=== PATIENT | male | born 1985 | race Caucasian/White ===

== ENCOUNTER 2023-10-24 09:21 | Inpatient (IN) ==
--- NOTE | 2023-10-24 09:42 | Emergency Department Note ---
Impression & Plan Paranoid delusion, Hypertension ED Provider Note NAME: EHSAN MILLER AGE: 38 SEX: M : 1985 ARRIVES VIA: Walk-In INFORMANT: Patient ED PROVIDER(S): Johan Aaron MD CHIEF COMPLAINT: Mental health and medical evaluation request. PLAN: Disposition: Admit to MEDICAL DECISION MAKING: The patient is a 38-year-old gentleman who presents to the emergency department accompanied by police requesting mental health and medical evaluation. Patient was found at the [facility] emergency department where he went to get his prostate assessments but they have yet to open and when he saw police had requested their assistance. He has disorganized and potentially/likely delusional thinking where he describes a convoluted history of [place] [facility] the [facility] [place] from his home in [place] where he reports going to [place] [employer] there and ended up getting assistance to leave the city and then got additional help by state police on the highway [place]. The patient admits he has not slept for the past 24 hours because he was "on the run". He reports he does take medication for blood pressure but is not sure which medications but reports he has been taking them. He denies regular alcohol use. He denies drug use or marijuana use. He reports he does have a history of depression. 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 He reports he does have a shotgun in the back of his car for hunting and protection. He reports he is open to being admitted medically or for mental health if that is the recommendation. On evaluation accompanied by our psychiatric binder caser, the patient is anxious but in no distress, afebrile heart in the 100s and blood pressure 200/130s. He appears clinically dry. He has no focal neurologic deficits. His thoughts are disorganized with pressured speech and flight of ideas. His account of events suggest delusional process. EKG without overt acute ischemia. CXR negative for acute cardiopulmonary process per my personal preliminary review/interpretation. WBC, H/H and platelets within normal limits. Chemistry without metabolic acidosis. ALT is 66, nonspecific and LFTs otherwise normal. High-sensitivity troponin 13.4, within normal limits. Lipase is not elevated. TSH within normal limits. UA without evidence of infection. Urine drug screen was negative. Medical alcohol is undetectable. COVID-19 RNA, NAAT test was negative. CT of the head was negative for acute abnormalities. Patient was treated with IV fluid hydration and 1 mg of oral Ativan. Heart rate and blood pressure did subsequently improve. Patient is medically cleared. Appreciate case management assistance/consultation and mental health evaluation was completed. Patient was still interested in voluntary inpatient mental health treatment. Referral placed to [facility] who accepted the patient for further management. Triage Nursing notes reviewed and agree them. Prior/external medical records reviewed Vital Signs: reviewed Differential diagnosis: Mood disorder, infection, hypoglycemia, electrolyte abnormalities, cardiac sources, intracerebral event, toxicologic, trauma, neurologic, as well as other pathologies. ER treatment provided: See below. Diagnostics interpreted by me: Cardiac Monitoring: An order for continuous cardiac monitoring was placed and demonstrated normal sinus rhythm, 89 bpm, no ectopy. Laboratory studies: See below Imaging studies: See below Consultation(s): Case management. HPI: The patient is a 38-year-old gentleman who presents to the emergency department accompanied by police requesting mental health and medical evaluation. Patient was found at the [facility] emergency department where he went to get his prostate assessments but they have yet to open and when he saw police had requested their assistance. He has disorganized and potentially/likely delusional thinking where he describes a convoluted history of running from the [facility] [place] from his home in [place] where he reports going to [place] [facility] [employer] there and ended up getting assistance to leave the [facility] and then got additional help by state police on the highway [place]. The patient admits he has not slept for the past 24 hours because he was "on the run". He reports he does take medication for blood pressure but is not sure which medications but reports he has been taking them. He denies regular alcohol use. He denies drug use or marijuana use. He reports he does have a history of depression. 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 He reports he does have a shotgun in the back of his car for hunting and protection. He reports he is open to being admitted medically or for mental health if that is the recommendation. ROS: See above HPI for pertinent positives & negatives. A total of 10 systems reviewed and were otherwise negative. VITALS:See Below PHYSICAL EXAMINATION: GENERAL: Awake, alert, well-appearing, in no distress HENT: Normocephalic, atraumatic. Oropharynx with dry mucous membranes and otherwise unremarkable. EYES: Normal conjunctiva. Sclera non-icteric. EOMI. No nystamgus. PEARRL. NECK: Supple. No nuchal rigidity. FROM. No JVD. RESPIRATORY: Clear to auscultation. CARDIAC: Tachycardic rate, normal rhythm. Extremities warm and well perfused. Pulses equal. ABDOMEN: Soft, non-distended. No tenderness to palpation. No rebound or guarding. No masses. MUSCULOSKELETAL: Chest examination reveals no tenderness. The back is symmetrical on inspection without obvious abnormality. There is no CVA tenderness to palpation. No joint edema. LOWER EXTREMITIES: Calves are equal size bilaterally and non-tender. No edema. No discoloration. NEURO: Normal sensorium. No sensory or motor deficits noted. SKIN: No rash or jaundice noted. PSYCH: Disorganized thoughts, flight of ideas, pressured speech, redirectable, denies SI/HI. Johan Aaron MD Past Med/Surg History Problem List (Updated 10/24/23 @ 21:32 by Johan Aaron MD) Hypertension (Acute) Paranoid delusion (Acute) Medical History Hypertension Social History Smoking Status: Current every day smoker Tobacco Type: Cigarettes Preferred Language: Greek Communication Ability: Effective State Auditor Required: No Beliefs That Will Affect Care: None Feels Safe at Home: No Gender Identity: Male Assistive Devices: None Results & Data (ED) Vital Signs Vital Signs - 24 hr 10/24/23 09:34 10/24/23 10:10 10/24/23 10:33 Temperature 37.0 C Temperature Source Temporal Artery Scan Pulse Rate 113 H 112 H Pulse Rate [Apical] 112 H Pulse Rhythm Pulse Rhythm [Apical] Pulse Strength [Apical] Respiratory Rate 20 18 Respiratory Effort / Characteristics Non-Labored Spontaneous Non-Labored Spontaneous Respiratory Depth Normal Normal Respiratory Pattern Regular Blood Pressure 205/132 H Blood Pressure [Left Arm] 171/124 H Blood Pressure Mean 156 Blood Pressure Mean [Left Arm] 139 Blood Pressure Position [Left Arm] Lying Pulse Oximetry 95 95 Oxygen Delivery Method Room Air Room Air Sepsis Recent Fever Within 48 Hours No Sepsis New/Unexplained Change in Mental Status No Sepsis Action Taken by Nursing No Action Required 10/24/23 11:14 10/24/23 11:15 10/24/23 12:02 Temperature Temperature Source Pulse Rate 104 H Pulse Rate [Apical] 104 H 104 H Pulse Rhythm Regular Pulse Rhythm [Apical] Regular Pulse Strength [Apical] Normal Respiratory Rate 19 19 18 Respiratory Effort / Characteristics Non-Labored Spontaneous Non-Labored Spontaneous Respiratory Depth Normal Normal Respiratory Pattern Regular Regular Blood Pressure Blood Pressure [Left Arm] 173/126 H 176/138 H Blood Pressure Mean Blood Pressure Mean [Left Arm] 141 150 Blood Pressure Position [Left Arm] Pulse Oximetry 96 96 95 Oxygen Delivery Method Room Air Room Air Room Air Sepsis Recent Fever Within 48 Hours Sepsis New/Unexplained Change in Mental Status Sepsis Action Taken by Nursing 10/24/23 12:33 10/24/23 13:06 Temperature Temperature Source Pulse Rate Pulse Rate [Apical] 96 H 96 H Pulse Rhythm Pulse Rhythm [Apical] Pulse Strength [Apical] Normal Normal Respiratory Rate 18 18 Respiratory Effort / Characteristics Non-Labored Spontaneous Non-Labored Spontaneous Respiratory Depth Normal Normal Respiratory Pattern Regular Regular Blood Pressure Blood Pressure [Left Arm] 151/118 H 132/96 Blood Pressure Mean Blood Pressure Mean [Left Arm] 129 108 Blood Pressure Position [Left Arm] Pulse Oximetry 93 93 Oxygen Delivery Method Room Air Room Air Sepsis Recent Fever Within 48 Hours Sepsis New/Unexplained Change in Mental Status Sepsis Action Taken by Nursing Laboratory Data Attestation: I reviewed the patient's lab results. 10/24/23 10:04 10/24/23 10:04 Lab Results 10/24/23 Range/Units 10:04 WBC 6.76 (4.8-10.8) K/ul RBC 4.98 (4.70-6.10) M/uL Hgb 15.9 (14.0-18.0) g/dl Hct 46.6 (42.0-52.0) % MCV 93.6 (80.0-100.0) fL MCH 31.9 (25.0-34.0) pg MCHC 34.1 (32.0-36.0) g/dL RDW Std Deviation 43.4 (36.4-46.3) fL RDW Coeff of Christian 12.6 (11.5-14.5) % Plt Count 321 (130-400) K/uL MPV 10.2 (9.4-12.4) fL Immature Gran % (Auto) 0.3 % Neut % (Auto) 71.6 % Lymph % (Auto) 16.3 % Harney % (Auto) 10.5 % Eos % (Auto) 0.6 % Baso % (Auto) 0.7 % Neut # (Auto) 4.84 (1.40-6.50) K/uL Lymph # (Auto) 1.10 L (1.20-3.40) K/uL Harney # (Auto) 0.71 H (0.11-0.59) K/uL Eos # (Auto) 0.04 (0.00-0.50) K/uL Baso # (Auto) 0.05 (0.00-0.20) K/uL Immature Gran # (Auto) 0.02 (0.01-0.20) K/uL PT 10.9 (9.0-12.0) Seconds INR 1.0 (0.9-1.1) Sodium 138 (136-145) mmol/L Potassium 3.7 (3.5-5.1) mmol/L Chloride 102 (98-107) mmol/L Carbon Dioxide 25 (21-32) mmol/L Anion Gap 11 (3-11) BUN 17 (6-23) mg/dl Creatinine 0.88 (0.6-1.4) mg/dl Est Cr Clr Drug Dosing 114.9 ml/min Est GFR ( Amer) 124.5 ml/min Est GFR (Non-Af Amer) 107.5 ml/min BUN/Creatinine Ratio 19.3 (10-20) Glucose 128 H (70-99(Fasting)) mg/dl Calcium 9.9 (8.6-10.3) mg/dl Total Bilirubin 0.7 (0.2-1.0) mg/dl AST 35 (13-39) U/L ALT 66 H (7-52) U/L Alkaline Phosphatase 64 (34-104) U/L Troponin I High Sens 13.4 (0-20) pg/ml Total Protein 7.8 (6.0-8.3) gm/dl Albumin 5.1 H (3.4-5.0) gm/dl Globulin 2.7 (2.5-4.0) gm/dl Albumin/Globulin Ratio 1.9 (0.9-2) Lipase 10 L (11-82) U/L TSH 3.078 (0.300-4.500) uIu/ml Ethyl Alcohol mg/dL < 10.0 (<10.0) mg/dl Administered Medications Discontinued Medications Sodium Chloride (Nss) 1,000 mls @ 999 mls/hr IV .Q1H1M STA Stop: 10/24/23 11:44 Last Infusion: 10/24/23 12:28 Dose: Infused Documented By: Admin: 10/24/23 11:12 Dose: 999 mls/hr Documented By: LUIS Lorazepam (Lorazepam 1 Mg Tab) 1 mg SL NOW STA Stop: 10/24/23 10:45 Last Admin: 10/24/23 11:13 Dose: 1 mg Documented By: LUIS Imaging Data Radiologist's Impression: Chest X-Ray 10/24/23 10:45 XR chest 1V portable CLINICAL HISTORY: Chest pain, nonspecific TECHNIQUE: Single frontal radiograph of the chest was obtained. Comparison: None available at the time of this dictation. FINDINGS: No lines and tubes are seen. The cardiomediastinal silhouette is normal. The lungs are clear. No evidence of pleural effusion or pneumothorax. IMPRESSION: No acute chest disease. ACT 112: Negative or not required by law. Electronically signed by: Zafar Macias M.D. 10/24/2023 10:[address] 10/24/23 10:46 CT head/brain wo con CLINICAL HISTORY: ams, htn Technique: Contiguous axial CT images of the head were acquired from the base of the skull to the vertex without intravenous contrast administration. Images were viewed in brain, subdural and bone windows. Automated dose lowering techniques and/or adjustment according to patient size were utilized for this exam. Comparison: None available at the time of this dictation. Findings: The ventricles, basal cisterns, and cerebral sulci are normal. There is no acute intracranial hemorrhage or evidence of acute territorial infarction. Neither mass effect, shift of the midline structures, nor abnormal extra-axial fluid collections are shown. Imaged portions of the paranasal sinuses and mastoid air cells are clear. The orbits appear normal. There are no acute fractures of the calvaria or scalp swelling. Impression: No acute intracranial hemorrhage, no evidence of acute territorial infarction or other acute intracranial disease process. ACT 112: Negative or not required by law. Electronically signed by: Zafar Macias M.D. 10/24/2023 11:54 AM Discharge Plan Visit Data Chief Complaint: Mental Health Evaluation Stated Complaint: ANXIETY, MHE ED Provider: Johan Aaron Discharge Problem: Paranoid delusion, Hypertension Patient Disposition: Admitted As Inpatient Discharge Instructions Interventions: ED Discharge Assessment Last Done: 10/24/23 15:03 Discharge Problem: Hypertension Qualifiers: Hypertension type: unspecified Qualified Code(s): I10 - Essential (primary) hypertension
--- NOTE | 2023-10-24 11:00 | XRay Report ---
XR chest 1V portable CLINICAL HISTORY: Chest pain, nonspecific TECHNIQUE: Single frontal radiograph of the chest was obtained. Comparison: None available at the time of this dictation. FINDINGS: No lines and tubes are seen. The cardiomediastinal silhouette is normal. The lungs are clear. No evid ence of pleural effusion or pneumothorax. IMPRESSION: No acute chest disease. ACT 112: Negative or not required by law. Electronically signed by: Zafar Macias M.D. 10/24/2023 10:58 AM
[2023-10-24] MEDS: SODIUM CHLORIDE 0.9% 1,000 ML IV STA (11:12)
[2023-10-24] MEDS: LORazepam 1 MG TAB SL STA (11:13)
[2023-10-24 11:14] LABS: Basophils # (auto) 0.05 K/uL (0.00-0.20); Basophils % (auto) 0.7 %; Eosinophils # (auto) 0.04 K/uL (0.00-0.50); Eosinophils % (auto) 0.6 %; Hematocrit (blood only) 46.6 % (42.0-52.0); Hemoglobin 15.9 g/dl (14.0-18.0); Immature Granulocytes # (auto) 0.02 K/uL (0.01-0.20); Immature Granulocytes % (auto) 0.3 %; Lymphocytes % (auto) 16.3 %; Mean Corpuscular Hemoglobin 31.9 pg (25.0-34.0); Mean Corpuscular Hgb Conc 34.1 g/dL (32.0-36.0); Mean Corpuscular Volume 93.6 fL (80.0-100.0); Mean Platelet Volume 10.2 fL (9.4-12.4); Monocytes # (auto) 0.71 K/uL (0.11-0.59); Monocytes % (auto) 10.5 %; Neutrophils # (auto) 4.84 K/uL (1.40-6.50); Neutrophils % (auto) 71.6 %; Platelet Count 321 K/uL (130-400); RDW Coefficient of Variation 12.6 % (11.5-14.5); RDW Standard Deviation 43.4 fL (36.4-46.3); Red Blood Count 4.98 M/uL (4.70-6.10); White Blood Count 6.76 K/ul (4.8-10.8)
[2023-10-24 11:38] LABS: Prothrombin Time 10.9 Seconds (9.0-12.0)
[2023-10-24 11:41] LABS: Albumin Globulin Ratio 1.9 (0.9-2); Albumin Level 5.1 gm/dl (3.4-5.0); BUN Creatinine Ratio 19.3 (10-20); Bilirubin,Total 0.7 mg/dl (0.2-1.0); Calcium 9.9 mg/dl (8.6-10.3); Creatinine Clr Calc Pharmacy 114.9 ml/min; Est GFR (African American) 124.5 ml/min; Est GFR (Non-African American) 107.5 ml/min; Globulin 2.7 gm/dl (2.5-4.0); Potassium 3.7 mmol/L (3.5-5.1); Total Protein 7.8 gm/dl (6.0-8.3)
[2023-10-24 11:46] LABS: Troponin I High Sensitivity 13.4 pg/ml (0-20)
--- NOTE | 2023-10-24 11:55 | CT Scan Report ---
CT head/brain wo con CLINICAL HISTORY: ams, htn Technique: Contiguous axial CT images of the head were acquired from the base of the skull to the paco marvin without intravenous contrast administration. Images were viewed in brain, subdural and [facility]. Automated dose lowering techniques and/or adjustment according to patient size were utilized for this exam. Comparison: None available at the time of this dictation. Findings: The ventricles, basal cisterns, and cerebral sulci are normal. There is no acute intracranial hemorrh age or evidence of acute territorial infarction. Neither mass effect, shift of the midline structures , nor abnormal extra-axial fluid collections are shown. Imaged portions of the paranasal sinuses and mastoid air cells are clear. The orbits appear normal. There are no acute fractures of the calvaria or scalp swelling. Impression: No acute intracranial hemorrhage, no evidence of acute territorial infarction or other acute intracra nial disease process. ACT 112: Negative or not required by law. Electronically signed by: Zafar Macias M.D. 10/24/2023 11:54 AM
[2023-10-24 11:56] LABS: Thyroid Stimulating Hormone 3.078 uIu/ml (0.300-4.500)
[2023-10-24 12:38] LABS: Appearance Urine Clear (Clear); Bacteria Urine Automated None Seen (None Seen); Bilirubin Urine Negative (Negative); Blood Urine Negative (Negative); Cast Urine Automated 0-2 /lpf (0-2); Color Urine Yellow; Epithelial Cell Urine Auto 0-2 /hpf (0-2); Glucose Urine UA Negative (Negative); Ketones Urine 1+ (Negative); Leukocyte Esterase Urine Negative (Negative); Nitrite Urine Negative (Negative); Protein Urine 1+ (Negative); RBC Urine Automated 0-2 /hpf (0-2); Specific Gravity Urine 1.027 (1.000-1.030); Urobilinogen Urine Negative (Negative); WBC Urine Automated 0-5 /hpf (0-5)
[2023-10-24 12:53] LABS: Amphetamines+Metham, Urine Neg (Neg); Barbiturates, Urine Neg (Neg); Benzodiazepine, Urine Neg (Neg); Cocaine, Urine Neg (Neg); Fentanyl, Urine Neg (Neg); MDMA (Ecstacy), Urine Neg (Neg); Marijuana, Urine Neg (Neg); Methadone, Urine Neg (Neg); Opiate, Urine Neg (Neg); Phencyclidine, Urine Neg (Neg)
[2023-10-24] MEDS ORDERED: ALUMINUM/MAGNESIUM SUSP 30 ML UDC PO PRN (14:37)
[2023-10-24] MEDS ORDERED: SODIUM CHLORIDE 0.65% NA SOLN 45 ML (OCEAN) PRN (14:37)
[2023-10-24] MEDS ORDERED: hydrOXYzine HCl 25 MG TAB PO PRN (14:37)
[2023-10-24] MEDS ORDERED: ACETAMINOPHEN 325 MG TAB PO PRN (14:37)
[2023-10-24] MEDS ORDERED: MAGNESIUM HYDROXIDE SUSP 30 ML UDC PO PRN (14:37)
[2023-10-24] MEDS ORDERED: BISMUTH SUBSALICYLATE LIQD 236 ML PO PRN (14:37)
[2023-10-24] MEDS ORDERED: LORazepam 1 MG TAB PO PRN (15:27)
[2023-10-24] MEDS ORDERED: Ativan PO Alcohol Withdrawal--Active Protocol PO PRN (15:27)
[2023-10-24] MEDS: ALBUTEROL HFA 8 GM INHALER INH PRN (21:15)
[2023-10-25] MEDS: NICOTINE 14 MG/24 HR PATCH TD SCH (08:25)
[2023-10-25] MEDS: NICOTINE POLACRILEX 2 MG GUM MT PRN (08:47)
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
[2023-10-25] MEDS: LOSARTAN POTASSIUM 50 MG TAB PO SCH (10:03)
--- NOTE | 2023-10-25 10:07 | Electrocardiogram Report ---
Test Reason : Blood Pressure : / mmHG Vent. Rate : 106 BPM Atrial Rate : 106 BPM P-R Int : 122 ms QRS Dur : 076 ms QT Int : 330 ms P-R-T Axes : 045 055 048 degrees QTc Int : 438 ms Sinus tachycardia Otherwise normal ECG No previous ECGs available Confirmed by Aly Vaughn ([id number]) on 10/25/2023 10:07:23 AM Referred By: REFERRED SELF Confirmed By:Aly Vaughn
[2023-10-25] MEDS: LORazepam 1 MG TAB PO ONE (12:10)
[2023-10-25] MEDS: LORazepam 1 MG TAB PO PRN (18:12)
[2023-10-25] MEDS: ATORVASTATIN 40 MG TAB PO SCH (21:12)
[2023-10-25] MEDS: hydrOXYzine HCl 25 MG TAB PO PRN (21:13)
--- NOTE | 2023-10-26 08:22 | Psychiatric Progress Note ---
Date of Service October 26, 2023 Impression / Recommendations Impression 38 yo man with a history of anxiety and alcohol use admitted for paranoia and initial concern for unspecified psychosis now able to verify that he has been targeted by threats from unknown individuals via phone calls/videos/text messages who are also attempting to extort him for money resulting in impulsive behaviors (driving all night to get away from perceived threats), significant anxiety and psychic distress. Diagnostically seems most consistent with an acute stress disorder with resultant insomnia, anxiety and paranoia to confirmed reality-based threats/extortion scheme but with suspected increased paranoia related to this causing him to misinterpret some neutral behaviors as constant threats resulting in reckless behaviors including speeding and driving across the state all night to get to safety. A: Slept much better and finds prn Vistaril helpful but still with some paranoia. No signs of acute matilda and not felt to be presentation from substance use or primary psychotic disorder. Remains consistent with acute stress disorder and heightened anxiety. Still with elevated BP and HR, likely combination of HTN, anxiety and alcohol withdrawal. Reviewed recommendations for antipsychotic trial, he declines this. Does not meet criteria for consideration for involuntary commitment or medication over objection. Behaviors remain organized, future focused. Discussed why stimulants would be contraindicated given current paranoia and no indication for use. Reviewed importance of maintaining safe behaviors, i.e. not speeding, while driving to friends and discussed coping skills to use and ways to challenge anxious/paranoid thoughts when he starts to worry he is being followed. Overall, I spent a total of 35 minutes on this case including meeting with the patient, reviewing the chart, nursing report, multidisciplinary team meeting, orders, and documentation. (1) Acute stress disorder: (2) Hypertension: (3) Paranoia: (4) Anxiety: Plan 10/26/2023: Continue with current tx plan. AWSS ongoing. 10/25/2023: The [facility] ([facility] mental health unit) on q15 min checks (behavioral with suicide precautions) for safety. The patient will participate in group, recreational, and milieu therapies and will be offered additional individual and family sessions as clinically appropriate. -AWSS with thiamine and folic acid and ativan for scoring -Vistaril prn Inventory Assets Strengths: supportive relationships, willing to get treatment Needs: safety and stabilization, medication discussion, additional coping skills, increased outpatient services Suicide Risk Level Suicide Risk Level: Moderate (q15 min suicide checks) (he denies SI but is very anxious and experiencing distress due to concerns about his safety with impulsivity, feels safe in the hospital, feels able to talk with staff ) Suicide Risk Level Comments: Risk Factors Assessment Do You Have Access To A Gun?: Yes (shotgun) Protective Factors Assessment Employed: Yes Interval History Identifying Information EHSAN MILLER is a 38-year-old M who currently lives in [place] alone, has no formal psychiatric history, and was admitted on 10/24/23 14:37 on a 201 voluntary commitment for paranoia and concern for psychosis. Chief Complaint "There are a few cars out there that keep driving around". Review of Systems Sleep Information Total Hours of Sleep: 8.30 Sleep Comments: PRN Vistaril at HS Meal Information Percent Meal Consumed - Breakfast: 100 Percent Meal Consumed - Lunch: 100 Percent Meal Consumed - Dinner: 100 Subjective Subjective Patient was seen & assessed and interval progress reviewed with treatment team nursing and social work. Slept 8.5 hours last night. Accepted prn Vistaril. Remains suspicious, looking for cars out the window thinking they might be targeting him. Scored on AWSS yesterday evening and again mid-day and this afternoon. Declined lipitor, reports he doesn't need this. At times concerned with construction workers outside the window, reassured when challenging cognitive distortions/catastrophizing related to this. Contacted and spoke with his HR rep at work and having [facility] paperwork sent. He's not interested in antipsychotic medications, wonders about ritalin to help him stay awake on future drives to stay with friends in case he starts to be followed again. Wonders if blue truck in hospital parking lot could have been same vehicle that followed him in the [place]. Reassured that hospital security keeps an eye on things in the parking lots too. Plans to stay with a friend in [place] and then likely will go to a friend's in [place] and then eventually make his way to [place] with his family once he is sure no one will be following him. Physical Exam Psychiatric Orientation: alert and oriented x 3 Apperance: appropriately dressed and appropriately groomed Eye Contact: good eye contact Motor Behavior: no abnormal motor movements Speech: normal rate/rhythm/volume of speech Affect: + anxious affect Mood: + anxious mood Thought Process: goal directed thought process Thought Content: + paranoid Suicidal Thoughts: denies suicidal thoughts Homicidal Thoughts: denies homicidal thoughts Hallucinations: no auditory hallucinations and no visual hallucinations Cognition: recent memory grossly intact, remote memory grossly intact, attention grossly intact and language grossly intact Estimated Intelligence: consistent with education level Insight: + limited insight Judgment: + limited judgement Vital Signs (Past 24 Hours) Last Vital Signs Temp 36.6 C 10/26/23 06:13 Pulse 75 10/26/23 06:15 Resp 16 10/26/23 06:13 BP 158/103 H 10/26/23 06:15 Pulse Ox 98 10/26/23 06:13 O2 Del Method Room Air 10/26/23 06:13 A physical exam was performed in the ED by Dr. Aaron for the purposes of medical clearance. I accept that physical as correct and adequate for the purposes of the inpatient physical exam. Results & Data ([facility]) Current Inpatient Medications Current Inpatient Medications: Current Inpatient Medications Acetaminophen (Acetaminophen 325 Mg Tab) 650 mg PO Q4H PRN PRN Reason: Headache or Minor Fever Stop: 11/23/23 14:36 Al Hydrox/Mg Hydrox/Simethicone (Aluminum/Magnesium Susp 30 Ml Udc) 30 ml PO Q4H PRN PRN Reason: GI Upset Stop: 11/23/23 14:36 Albuterol (Albuterol Hfa 8 Gm Inhaler) 1 puffs INH Q4 PRN PRN Reason: shortness of breath Stop: 11/24/23 08:50 Atorvastatin Calcium (Atorvastatin 40 Mg Tab) 40 mg PO PM NATALIIA Stop: 11/24/23 20:59 Last Admin: 10/25/23 21:12 Dose: Not Given Bismuth Subsalicylate (Bismuth Subsalicylate Liqd 236 Ml) 15 ml PO PRN PRN PRN Reason: Loose Stool Stop: 11/23/23 14:36 Hydroxyzine HCl (Hydroxyzine Hcl 25 Mg Tab) 50 mg PO HSZ PRN PRN Reason: Insomnia Stop: 11/23/23 14:36 Last Admin: 10/25/23 21:13 Dose: 50 mg Hydroxyzine HCl (Hydroxyzine Hcl 25 Mg Tab) 25 mg PO Q4H PRN PRN Reason: Anxiety Stop: 11/23/23 14:36 Lorazepam (Lorazepam 1 Mg Tab) 1 mg PO UD PRN; Protocol PRN Reason: EtOH Withdrawal AWSS Score 6,7 Stop: 11/23/23 15:26 Last Admin: 10/25/23 18:12 Dose: 1 mg Lorazepam (Lorazepam 1 Mg Tab) 3 mg PO ONCE PRN; Protocol PRN Reason: EtOH Withdrawal AWSS Score 10 & above Lorazepam (Lorazepam 1 Mg Tab) 2 mg PO UD PRN; Protocol PRN Reason: EtOH Withdrawal AWSS Score 8,9 Stop: 11/23/23 15:26 Losartan Potassium (Losartan Potassium 50 Mg Tab) 100 mg PO DAILY [facility] Stop: 11/24/23 08:59 Last Admin: 10/25/23 10:03 Dose: 100 mg Magnesium Hydroxide (Magnesium Hydroxide Susp 30 Ml Udc) 30 ml PO DAILY PRN PRN Reason: Constipation Stop: 11/23/23 14:36 Miscellaneous (Remove Nicoderm Patch) 1 each N/A DAILY@0859 [facility] Stop: 11/24/23 08:58 Last Admin: 10/25/23 08:25 Dose: Not Given Nicotine (Nicotine 14 Mg/24 Hr Patch) 1 patch TD QAM [facility] Stop: 11/24/23 08:59 Last Admin: 10/25/23 08:25 Dose: Not Given Nicotine Polacrilex (Nicotine Polacrilex 2 Mg Gum) 2 piece MT PRN PRN PRN Reason: Nicotine Withdrawal Symptoms Stop: 11/23/23 14:36 Last Admin: 10/25/23 17:36 Dose: 2 piece Sodium Chloride (Sodium Chloride 0.65% Na Soln 45 Ml ([place])) 1 - 2 sprays NA PRN PRN PRN Reason: Nasal Dryness/Congestion Stop: 11/23/23 14:36 Mental Health & Subst Abuse Tx Therapist Name of Therapist: N/A Post Discharge Appointments Primary Care Physician Name Of Family Doctor/PCP: None (2) Hypertension Hypertension type: unspecified Qualified Code(s): I10 - Essential (primary) hypertension
[2023-10-26] MEDS: THIAMINE HCL 50 MG TABLET PO SCH (12:41)
[2023-10-26] MEDS: FOLIC ACID 1 MG TAB PO SCH (12:41)
[2023-10-26] MEDS: LORazepam 1 MG TAB PO PRN (14:18)
[2023-10-26] MEDS: cloNIDine HCL 0.1 MG TAB PO ONE (18:13)
[2023-10-26] MEDS: ALBUTEROL HFA 8 GM INHALER INH PRN (19:12)
--- NOTE | 2023-10-27 08:49 | Psychiatric Progress Note ---
Date of Service October 27, 2023 Impression / Recommendations Impression 38 yo man with a history of anxiety and alcohol use admitted for paranoia and initial concern for unspecified psychosis now able to verify that he has been targeted by threats from unknown individuals via phone calls/videos/text messages who are also attempting to extort him for money resulting in impulsive behaviors (driving all night to get away from perceived threats), significant anxiety and psychic distress. Diagnostically seems most consistent with an acute stress disorder with resultant insomnia, anxiety and paranoia to confirmed reality-based threats/extortion scheme but with suspected increased paranoia related to this causing him to misinterpret some neutral behaviors as constant threats resulting in reckless behaviors including speeding and driving across the state all night to get to safety. A: Ongoing stable sleep, which continues to reduce likelihood of matilda, but still with significant paranoia and anxiety that he is being targeted by [facility] gang members. Continues to decline option for antipsychotic medication and doesn't meet criteria for medication over objection. Scored on AWSS much of yesterday, seems largely due to his elevated BP and pulse as no evidence for diaphoresis/tremors. Losartan is at maximum dose, he won't consent to any additional blood pressure medications. MNPR due to extreme paranoia Overall, I spent a total of 55 minutes on this case including meeting with the patient, reviewing the chart, nursing report, multidisciplinary team meeting, orders, completion of [facility] paperwork and documentation. (1) Acute stress disorder: (2) Hypertension: (3) Paranoia: (4) Anxiety: Plan 10/27/2023: AWSS ongoing. Continues to decline additional medication for blood pressure control nor antipsychotic medication. 10/26/2023: Continue with current tx plan. AWSS ongoing. 10/25/2023: The patient was admitted to the [facility] ([facility]) on q15 min checks (behavioral with suicide precautions) for safety. The patient will participate in group, recreational, and milieu therapies and will be offered additional individual and family sessions as clinically appropriate. -AWSS with thiamine and folic acid and ativan for scoring -Vistaril prn Inventory Assets Strengths: supportive relationships, willing to get treatment Needs: safety and stabilization, medication discussion, additional coping skills, increased outpatient services Suicide Risk Level Suicide Risk Level: Moderate (q15 min suicide checks) (he denies SI but is very anxious and experiencing distress due to concerns about his safety with impulsivity, feels safe in the hospital, feels able to talk with staff ) Suicide Risk Level Comments: Risk Factors Assessment Do You Have Access To A Gun?: Yes (shotgun) Protective Factors Assessment Employed: Yes Interval History Identifying Information EHSAN MILLER is a 38-year-old M who currently lives in [place] alone, has no formal psychiatric history, and was admitted on 10/24/23 14:37 on a 201 voluntary commitment for paranoia and concern for psychosis. Chief Complaint "I'm stressed". Review of Systems Sleep Information Total Hours of Sleep: 7.5 Sleep Comments: PRN Vistaril at HS Meal Information Percent Meal Consumed - Breakfast: 100 Percent Meal Consumed - Lunch: 100 Percent Meal Consumed - Dinner: 100 Subjective Subjective Patient was seen & assessed and interval progress reviewed with treatment team nursing and social work. Ongoing paranoia and suspicion. Very suspicious of clonidine offered last evening for ongoing elevated BP. Scored on AWSS most of yesterday in large part due to elevated BP. Not scoring overnight or today. Worried about a blue convertible parked in the staff lot, responded to some reality-testing about this noting he felt more relieved to know all staff had parking registration and that security monitored the lots however ruminating on this again later in the afternoon. Continues to decline any antipsychotic or other psychiatric medication except ativan for AWSS scoring which he finds helpful for his anxiety and Vistaril for sleep. Did sleep well again last night. Would like me to complete his FMLA paperwork. Not agreeable to adding a calcium channel alicia for his blood pressure as he doesn't like to take medications, understands risk for stroke with ongoing elevated blood pressure. Physical Exam Psychiatric Orientation: alert and oriented x 3 Apperance: appropriately dressed and appropriately groomed Eye Contact: good eye contact Motor Behavior: no abnormal motor movements Speech: normal rate/rhythm/volume of speech Affect: + anxious affect Mood: + anxious mood Thought Process: + circumstantial thought process and + perseveration Thought Content: + paranoid Suicidal Thoughts: denies suicidal thoughts Homicidal Thoughts: denies homicidal thoughts Hallucinations: no auditory hallucinations and no visual hallucinations Cognition: recent memory grossly intact, remote memory grossly intact, attention grossly intact and language grossly intact Estimated Intelligence: consistent with education level Insight: + limited insight Judgment: + limited judgement Vital Signs (Past 24 Hours) Last Vital Signs Temp 36.6 C 10/27/23 06:28 Pulse 108 H 10/27/23 08:31 Resp 16 10/27/23 06:28 BP 158/97 H 10/27/23 08:31 Pulse Ox 97 10/26/23 19:33 O2 Del Method Room Air 10/26/23 19:33 Results & Data ([facility]) Current Inpatient Medications Current Inpatient Medications: Current Inpatient Medications Acetaminophen (Acetaminophen 325 Mg Tab) 650 mg PO Q4H PRN PRN Reason: Headache or Minor Fever Stop: 11/23/23 14:36 Al Hydrox/Mg Hydrox/Simethicone (Aluminum/Magnesium Susp 30 Ml Udc) 30 ml PO Q4H PRN PRN Reason: GI Upset Stop: 11/23/23 14:36 Albuterol (Albuterol Hfa 8 Gm Inhaler) 1 puffs INH Q4 PRN PRN Reason: shortness of breath Stop: 11/24/23 08:50 Last Admin: 10/26/23 19:12 Dose: 1 puffs Atorvastatin Calcium (Atorvastatin 40 Mg Tab) 40 mg PO PM NATALIIA Stop: 11/24/23 20:59 Last Admin: 10/26/23 21:04 Dose: Not Given Bismuth Subsalicylate (Bismuth Subsalicylate Liqd 236 Ml) 15 ml PO PRN PRN PRN Reason: Loose Stool Stop: 11/23/23 14:36 Folic Acid (Folic Acid 1 Mg Tab) 1 mg PO QAM NATALIIA Stop: 11/25/23 08:59 Last Admin: 10/27/23 08:26 Dose: 1 mg Hydroxyzine HCl (Hydroxyzine Hcl 25 Mg Tab) 50 mg PO HSZ PRN PRN Reason: Insomnia Stop: 11/23/23 14:36 Last Admin: 10/26/23 21:11 Dose: 50 mg Hydroxyzine HCl (Hydroxyzine Hcl 25 Mg Tab) 25 mg PO Q4H PRN PRN Reason: Anxiety Stop: 11/23/23 14:36 Lorazepam (Lorazepam 1 Mg Tab) 1 mg PO UD PRN; Protocol PRN Reason: EtOH Withdrawal AWSS Score 6,7 Stop: 11/23/23 15:26 Last Admin: 10/26/23 20:08 Dose: 1 mg Lorazepam (Lorazepam 1 Mg Tab) 3 mg PO ONCE PRN; Protocol PRN Reason: EtOH Withdrawal AWSS Score 10 & above Lorazepam (Lorazepam 1 Mg Tab) 2 mg PO UD PRN; Protocol PRN Reason: EtOH Withdrawal AWSS Score 8,9 Stop: 11/23/23 15:26 Last Admin: 10/26/23 14:18 Dose: 2 mg Losartan Potassium (Losartan Potassium 50 Mg Tab) 100 mg PO DAILY [facility] Stop: 11/24/23 08:59 Last Admin: 10/27/23 08:26 Dose: 100 mg Magnesium Hydroxide (Magnesium Hydroxide Susp 30 Ml Udc) 30 ml PO DAILY PRN PRN Reason: Constipation Stop: 11/23/23 14:36 Miscellaneous (Remove Nicoderm Patch) 1 each N/A DAILY@0859 [facility] Stop: 11/24/23 08:58 Last Admin: 10/27/23 08:27 Dose: Not Given Nicotine (Nicotine 14 Mg/24 Hr Patch) [facility] Stop: 11/24/23 08:59 Last Admin: 10/27/23 08:28 Dose: Not Given Nicotine Polacrilex (Nicotine Polacrilex 2 Mg Gum) 2 piece MT PRN PRN PRN Reason: Nicotine Withdrawal Symptoms Stop: 11/23/23 14:36 Last Admin: 10/27/23 08:08 Dose: 2 piece Sodium Chloride (Sodium Chloride 0.65% Na Soln 45 Ml ([place])) 1 - 2 sprays NA PRN PRN PRN Reason: Nasal Dryness/Congestion Stop: 11/23/23 14:36 Thiamine HCl (Thiamine Hcl 50 Mg Tablet) 50 mg PO QAM [facility] Stop: 11/25/23 08:59 Last Admin: 10/27/23 08:27 Dose: 50 mg Mental Health & Subst Abuse Tx Therapist Name of Therapist: N/A Post Discharge Appointments Primary Care Physician Name Of Family Doctor/PCP: None (2) Hypertension Hypertension type: unspecified Qualified Code(s): I10 - Essential (primary) hypertension
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
[2023-10-29] MEDS: LORazepam 0.5 MG TAB PO PRN (20:53)
--- NOTE | 2023-10-30 12:02 | Discharge Summary ---
Date of Service October 30, 2023 History of Present Illness Sanjay presented to the hospital with police after driving all night and ended up in [place] due to fear he was being targeted by gang members from [place] who are trying to extort money from him. He reports feeling paranoid and on high alert due to receiving threatening messages after interacting with an escort-related website. He describes a series of events where he felt tracked and threatened, including seeing individuals standing in his apartment lobby, making strange statements toward him and an individual who reported ", , " and proceeded to drop a pigeon next to him in the entryway of the police station in [facility] when he went to report his concerns about being targeted and at risk. All of these seemingly unusual incidents kept happening around him which kept adding to his concerns and paranoia. He expresses fear for his safety and the safety of his family, noting increased suspicious activity around his sister's house and his own neighborhood. He has no history of psychiatric hospitalization or medication but is currently experiencing very high levels of anxiety and panic. He is terrified about having to eventually leave the safety of the inpatient hospital setting as he thinks these individuals may try to kill him since he's upset them by responding to their texts and refusing to pay the money they are asking for. Regarding substance use, he reports social binge drinking, typically two to three nights a week, and smoking cigarettes occasionally, not exceeding a quarter pack a day. He has a history of DUIs but denies recent negative consequences from alcohol use. He has not been on any medications for alcohol use and does not consider it a current problem. He provides additional information about the timeline of events since October 14. On October 14 he texted an escort service, largely out of curiosity, but never paid for or utilized any services. The next day, Monday10/16/2023, he started getting threatening texts and calls to his personal phone. He looked up the number and it tracked to an address and name in [facility] which he later provided to police in [place]. He also reported this to the FBI on Monday10/17/2023 and they told him to file a police report because it is a local matter. He then filed a local police report a few days later on 10/20/2023. That day he started to see abnormal activity such as a large megha waiting in his apartment lobby and someone else approached him making weird statements and seemed to be possibly holding a gun. Since filing the report he has started to see a lot more people of black and ethnicity which he is concerned could be related to a local gang as the text messages have referenced involvement of the [place] ze[place]. On 10/23/2023 was the deadline in the texts for when they wanted him to make an initial payment. He was staying with his [id number] who also felt like there were unusual things happening and both didn't want to risk their child, Sanjay's nephew, being around possible violence. Monday night he drove back to [facility] and back to his home noting "I was on high alert the whole time". Saw tinted cars across the street. Weird encounter at the police station, the police reported this was normal behavior for that area. He then left his home around 8:30pm Monday night and was worried he might be getting followed while driving. He also gave information to a [employer] he saw alongside the highway because he felt unsafe. He was thinking of going to the [facility] to find a hotel and used backroads in case he was being followed. However, every time he found a small town he noticed a similar white SUV vehicle that seemed to be following him and therefore decided to get on the highway and drove all night at high speeds to lose any people who might be trying to follow him. After arriving at the gas station in [place] he felt safe enough to use the bathroom and then asked for police assistance and was brought to the hospital. He has a gun in his car in case it is needed for self-defense. Today he notes: "I'm scared, I need to be safe, I'm afraid to go home and to work". He provides additional information that the FBI has told him this is a common extortion scheme and happens a lot. He has not felt reassured by this. Since coming to the inpatient psychiatry unit he did use his work phone to send a message to his boss and reply to a required [id number] message. He turned on his personal phone and showed us the series of threatening text messages and videos of men wearing sandra and holding an assault rifle making direct threats and asking for money. Now that he's turned on his phone, he's worries it is being tracked and that these individuals may try to find him in the hospital, he's hopeful security can be alerted to this possibility and would like to speak with the local police department. Psychiatric ROS notable for no history of psychosis, matilda, OCD, PTSD nor eating disorder. Physical Exam Mental Examination Appearance: Disheveled Eye Contact: Diverts Contact Motor Behavior: Restless Speech: Excessive Mood: Anxious Affect: Congruent Thought Process: Circumstantial Thought Content: Intact Hallucinations: None Insight: Poor Judgement: Poor Vital Signs (Past 24 Hours) Last Vital Signs Temp 36.7 C 10/30/23 06:32 Pulse 85 10/30/23 06:33 Resp 16 10/30/23 06:32 BP 145/106 H 10/30/23 06:33 Pulse Ox 97 10/26/23 19:33 O2 Del Method Room Air 10/26/23 19:33 Principal Diagnosis Acute Stress Disorder Paranoia Hypertension Psychiatric Data See daily stay summary. In short, safety was maintained and the patient was cooperative with care. Pt refused medications during this visit; was offered antipsychotic medications. Utilized Lorazepam PRN and effective for anxiety. Day of Discharge Assessment Today the patient voices readiness for discharge. They note improvement in mood and deny thoughts to harm self or others. Thoughts remain organized and they are improved from admission. Patient presented continued paranoia however did not reach to the level of delusional thought. Did not present imminent safety concerns. They agreed to keep follow-up appointments. They are stable for discharge to outpatient level of care. Transition of Care Transition Of Care Record: was reviewed with the patient Advance Directives Advance Directives Information Provided: Yes Advance Directives: No Mental Health Advance Directive: No Advance Directives on File: No Living Will: No Power of Business Director: No Advance Directives Reason:: Declines as Mental Health Visit. Suicide Risk Level Suicide Risk Level Comments: Risk Factors Assessment Do You Have Access To A Gun?: Yes (shotgun) Protective Factors Assessment Employed: Yes Discharge Data Lab Results 10/24/23 10/24/23 10:04 Unknown WBC 6.76 RBC 4.98 Hgb 15.9 Hct 46.6 MCV 93.6 MCH 31.9 MCHC 34.1 RDW Std Deviation 43.4 RDW Coeff of Christian 12.6 Plt Count 321 MPV 10.2 Immature Gran % (Auto) 0.3 Neut % (Auto) 71.6 Lymph % (Auto) 16.3 [place] % (Auto) 10.5 Eos % (Auto) 0.6 Baso % (Auto) 0.7 Neut # (Auto) 4.84 Lymph # (Auto) 1.10 L [place] # (Auto) 0.71 H Eos # (Auto) 0.04 Baso # (Auto) 0.05 Immature Gran # (Auto) 0.02 PT 10.9 INR 1.0 Sodium 138 Potassium 3.7 Chloride 102 Carbon Dioxide 25 Anion Gap 11 BUN 17 Creatinine 0.88 Est Cr Clr Drug Dosing 114.9 Est GFR ( Amer) 124.5 Est GFR (Non-Af Amer) 107.5 BUN/Creatinine Ratio 19.3 Glucose 128 H Calcium 9.9 Total Bilirubin 0.7 AST 35 ALT 66 H Alkaline Phosphatase 64 Troponin I High Sens 13.4 Total Protein 7.8 Albumin 5.1 H Globulin 2.7 Albumin/Globulin Ratio 1.9 Lipase 10 L TSH 3.078 Urine Color Yellow Urine Appearance Clear Urine pH 6.0 Ur Specific [place] 1.027 Urine Protein 1+ H Urine Glucose (UA) Negative Urine Ketones 1+ H Urine Blood Negative Urine Nitrite Negative Urine Bilirubin Negative Urine Urobilinogen Negative Ur Leukocyte Esterase Negative Urine WBC (Auto) 0-5 Urine RBC (Auto) 0-2 U Hyaline Cast (Auto) 0-2 U Epithel Cells (Auto) 0-2 Urine Bacteria (Auto) None Seen Urine Opiates Screen Neg Ur Methadone, Qual Neg Urine Fentanyl Screen Neg Urine Barbiturates Neg Ur Phencyclidine (PCP) Neg U Amphetamin/Meth Scrn Neg MDMA (Ecstasy) Screen Neg U Benzodiazepines Scrn Neg Ur Cocaine Metabolite Neg U Marijuana (THC) Screen Neg Ethyl Alcohol mg/dL < 10.0 SARS-CoV-2, RNA, NAAT NEGATIVE Hospital Course (1) Acute stress disorder: (2) Hypertension: (3) Paranoia: (4) Anxiety: Plan 10/30/2023: Continue with current tx plan. Pt declines outpatient NEEDED medications for anxiety. 10/29/2023: Continue with current tx plan. Pt declines additional medication for anxious rumination or paranoia. 10/28/2023: Discontinue AWSS. Start lorazepam 0.5 mg to twice daily as needed for anxiety. Patient refuses antipsychotic medication recommendation. 10/27/2023: AWSS ongoing. Continues to decline additional medication for blood pressure control nor antipsychotic medication. 10/26/2023: Continue with current tx plan. AWSS ongoing. 10/25/2023: The patient was admitted to the [facility] ([facility]) on q15 min checks (behavioral with suicide precautions) for safety. The patient will participate in group, recreational, and milieu therapies and will be offered additional individual and family sessions as clinically appropriate. -AWSS with thiamine and folic acid and ativan for scoring -Vistaril prn Mental Health & Subst Abuse Tx Therapist Name of Therapist: N/A Post Discharge Appointments Primary Care Physician Name Of Family Doctor/PCP: None Discharge Plan Discharge Items Patient Disposition: Home - Self-Care Reason For Visit: ANXIETY, MHE Discharge Diagnosis: Acute Stress Disorder Paranoia Activity: Resume your previous activity Non-emergency contact: Primary Care Provider and Therapist Call non-emergency contact if: you have any medication questions and your symptoms worsen Follow-up/Referrals: PCP,NO [Primary Care Provider] - Diet: Regular Addtl Attending Provider Instructions: -Consider seeking professional help if anxiety or sleep disturbances persist Pending Studies at Discharge: No Stand-Alone Forms: My [employer] Smoking Cessation Medications and DC Order Prescriptions: Continued losartan 100 mg Tablet 100 mg PO DAILY atorvastatin 40 mg Tablet 40 mg PO PM albuterol sulfate 90 mcg/actuation HFA aerosol inhaler 1 inh INHALATION Q4 PRN (Reason: shortness of breath) Discharge Orders: Discharge Order (Routine); Ordered 10/30/23 Ordered By: Varinder Farr Admission Data Admit Date/Time: 10/24/23 14:37 Attending Provider: Rosmery Post Admit Provider: Rosmery Post Primary Care Provider: PCP,NO Other Interventions: Discharge Summary Assessment (RN) Last Done: 10/30/23 12:24 C[place] [address] D/C day mgmt > 30 min Patient Type Established History Expanded Problem Focused Exam Expanded Problem Focused Medical Decision Making Moderate Complexity Diagnoses Acute stress disorder F43.0 Hypertension I10 Hypertension type: unspecified Paranoia F22 Anxiety F41.9
== END 2023-10-30 13:00 | disposition home or self-care (01) | DRG 880 ==
LOC: ED 09:21 → 3S 14:37